=== PATIENT | male | born 1945 | race Caucasian/White ===

== ENCOUNTER 2016-07-22 18:47 | Emergency (ER) | payer MEDICARE, OTHER ==
[~2016-07-22 18:47] MED LIST: BACTROBAN15 GM TOP; CALCITRIOL0.25 MCG PO; DULCOLAX5 MG PO; HYDROCODON-ACE1 EAC6 PO; K-DUR20 MEQ PO; LASIX10 MG/ML PO; LENVIMA PO; LEVAQUIN500 MG PO; LISINOPRIL5 MG PO; MELOXICAM7.5 MG PO; NEURONTIN800 MG PO; PROTONIX40 MG PO; SYNTHROID300 MCG PO; TOPROL XL25 MG PO
[2016-07-22 19:53] LABS: BASO % 0.2 % (0.2-1.2); EOS % 0.3 % (0.8-7.0); GRAN % 80.6 % (34.0-67.9); HEMATOCRIT 41.4 % (40-51); HEMOGLOBIN 13.9 g/dL (13.7-17.5); LYMPH # 0.7 10_X3_uL (1.3-3.6); LYMPH % 7.1 % (21.8-53.1); MEAN CORPUSCULAR HEMOGLOBIN 32.3 pg (27.0-33.0); MEAN CORPUSCULAR HGB CONC 33.6 g/dL (32.0-36.0); MEAN CORPUSCULAR VOLUME 96.3 fL (79-92); MEAN PLATELET VOLUME 10.3 fl (7.5-11.5); MONO # 1.2 10_X3_uL (0.3-0.8); MONO % 11.8 % (5.3-12.2); PLATELET COUNT 104 x10_3/uL (163-337)
[2016-07-22 20:00] LABS: URINE BILIRUBIN 1+ (NEGATIVE); URINE BLOOD NEGATIVE (NEGATIVE); URINE GLUCOSE (UA) NORMAL (NORMAL); URINE KETONE TRACE (NEGATIVE); URINE LEUKOCYTE ESTERASE TRACE (NEGATIVE); URINE NITRATE NEGATIVE (NEGATIVE); URINE PROTEIN 1+ (NEGATIVE)
[2016-07-22 20:08] LABS: ALBUMIN 4.2 gm/dL (3.4-5.0); ALKALINE PHOSPHATASE 48 U/L (50-136); ALT/SGPT 30 U/L (7.53-40.17); AMYLASE 38 U/L (15.62-74.58); AST/SGOT 25 U/L (6.66-35.34); BILIRUBIN,TOTAL 1.25 mg/dL (0.0-1.0); CALCIUM 8.9 mg/dL (8.7-10.7); CARBON DIOXIDE 23 mmol/L (21-32); CREATININE 1.2 mg/dL (0.6-1.3); GLUCOSE,RANDOM 150 mg/dL (70-99); LIPASE 13 U/L (6.75-60.75); POTASSIUM 4.6 mmol/L (3.5-5.1); SODIUM 139 mmol/L (136-145); TOTAL PROTEIN 7.7 gm/dL (6.4-8.2)
[2016-07-22 20:10] LABS: URINE MUCUS 2+; URINE RBC 0-5 /[HPF] (0-2); URINE WBC 0-5 /[HPF] (0-3)
[2016-07-22 20:38] LABS: BLOOD UREA NITROGEN 27 mg/dL (7-18)
== END 2016-07-22 22:33 | disposition home or self-care (01) ==
LOC: ER 18:47
PROVIDERS: Internal Medicine
DX: R10.9 Unspecified abdominal pain (principal); Z85.850 Personal history of malignant neoplasm of thyroid; Z93.0 Tracheostomy status
CPT/HCPCS: 36415; 71010; 80053; 81001; 82150; 83690; 85025; 96374; 99070; 99284; 99284-25

== ENCOUNTER 2016-08-10 10:02 | Inpatient (IN) | payer MEDICARE, OTHER ==
[~2016-08-10] VITALS: Ht 188 cm; Wt 135.0 kg
[2016-08-10 11:24] LABS: BASO # 0.1 10_X3_uL (0.0-0.1); BASO % 0.3 % (0.2-1.2); EOS # 0.1 10_X3_uL (0.0-0.5); EOS % 0.6 % (0.8-7.0); GRAN # 11.5 10_X3_uL (1.8-5.4); GRAN % 80.6 % (34.0-67.9); HEMATOCRIT 32.5 % (40-51); HEMOGLOBIN 10.1 g/dL (13.7-17.5); LYMPH # 0.8 10_X3_uL (1.3-3.6); LYMPH % 5.7 % (21.8-53.1); MEAN CORPUSCULAR HEMOGLOBIN 31.3 pg (27.0-33.0); MEAN CORPUSCULAR HGB CONC 31.1 g/dL (32.0-36.0); MEAN CORPUSCULAR VOLUME 100.6 fL (79-92); MEAN PLATELET VOLUME 9.3 fl (7.5-11.5); MONO # 1.8 10_X3_uL (0.3-0.8); MONO % 12.8 % (5.3-12.2); PLATELET COUNT 343 x10_3/uL (163-337); RED BLOOD COUNT 3.23 x10_6/uL (4.6-6.1); RED CELL DISTRIBUTION WIDTH 17.1 % (11.6-14.4); WHITE BLOOD COUNT 14.3 x10_3/uL (4.2-9.1)
[2016-08-10 11:37] LABS: ALBUMIN 2.4 gm/dL (3.4-5.0); ALKALINE PHOSPHATASE 226 U/L (50-136); ALT/SGPT 15 U/L (7.53-40.17); AST/SGOT 42 U/L (6.66-35.34); BLOOD UREA NITROGEN 16 mg/dL (7-18); CALCIUM 7.1 mg/dL (8.7-10.7); CARBON DIOXIDE 23 mmol/L (21-32); CREATININE 0.9 mg/dL (0.6-1.3); GLUCOSE,RANDOM 121 mg/dL (70-99); POTASSIUM 4.5 mmol/L (3.5-5.1); SODIUM 138 mmol/L (136-145); TOTAL PROTEIN 6.5 gm/dL (6.4-8.2)
[2016-08-10 14:46] LABS: URINE BILIRUBIN NEGATIVE (NEGATIVE); URINE BLOOD NEGATIVE (NEGATIVE); URINE GLUCOSE (UA) NORMAL (NORMAL); URINE KETONE TRACE (NEGATIVE); URINE LEUKOCYTE ESTERASE 1+ (NEGATIVE); URINE NITRATE POSITIVE (NEGATIVE); URINE PROTEIN 1+ (NEGATIVE); UROBILINOGEN NORMAL mg/dL (<1.0)
[2016-08-10 15:06] LABS: URINE BACTERIA 1+ (NONE SEEN); URINE MUCUS 1+; URINE RBC 0-5 /[HPF] (0-2); URINE SQUAMOUS EPITHELIAL CELL 0-10 /[HPF] (NONE SEEN); URINE WBC 0-5 /[HPF] (0-3)
== END 2016-08-11 15:00 | disposition short-term general hospital (02) | DRG 194 ==
LOC: ER 10:02 → MS 16:53 → UNDODEPER 08-12 10:52
PROVIDERS: General Practice; ADMIT Family Medicine
DX: J18.9 Pneumonia, unspecified organism (principal); J90 Pleural effusion, not elsewhere classified; N39.0 Urinary tract infection, site not specified; C79.31 Secondary malignant neoplasm of brain; C78.00 Secondary malignant neoplasm of unspecified lung; I11.0 Hypertensive heart disease with heart failure; R19.7 Diarrhea, unspecified; I50.9 Heart failure, unspecified; B96.0 Mycoplasma pneumoniae [M. pneumoniae] as the cause of diseases classified elsewhere; Z85.850 Personal history of malignant neoplasm of thyroid; Z93.0 Tracheostomy status; Z98.890 Other specified postprocedural states; Z96.651 Presence of right artificial knee joint; Z79.891 Long term (current) use of opiate analgesic; Z79.899 Other long term (current) drug therapy; Z87.891 Personal history of nicotine dependence; Z90.02 Acquired absence of larynx; Z90.49 Acquired absence of other specified parts of digestive tract
CPT/HCPCS: 36415; 71250; 74150; 80053; 81001; 83605; 83880; 85025; 86738; 87040; 87086; 87324; 87449; 94664; 99070; J7040; J8597; Q9967

== ENCOUNTER 2016-08-10 10:02 | Emergency (ER) | payer MEDICARE, OTHER | END 2016-08-10 16:53 | disposition other institution (70) | LOC: ER 10:02 | DX: I50.9 Heart failure, unspecified (principal); R60.0 Localized edema; J18.9 Pneumonia, unspecified organism; J90 Pleural effusion, not elsewhere classified; R16.1 Splenomegaly, not elsewhere classified; I87.8 Other specified disorders of veins; N28.1 Cyst of kidney, acquired; R53.1 Weakness; E66.01 Morbid (severe) obesity due to excess calories; Z79.899 Other long term (current) drug therapy ==